=== PATIENT | female | born 1955 | race Caucasian/White ===

== ENCOUNTER → 2016-10-08 | Outpatient (CLI) | payer BC ==
[~2016-10-08] MED LIST: NO HOME MEDICATIONS; PERCOCET 325 MG1 TA2 PO
== END ==
LOC: COL.VAS 10:20
DX: M79.89 Other specified soft tissue disorders (principal)

== ENCOUNTER → 2017-05-20 | Outpatient (CLI) | payer BC | LOC: MC.RAD 14:20 | DX: Z12.31 Encounter for screening mammogram for malignant neoplasm of breast (principal); N63.20 Unspecified lump in the left breast, unspecified quadrant ==

== ENCOUNTER → 2017-05-25 | Outpatient (CLI) | payer BC | LOC: MC.RAD 12:59 | DX: N60.02 Solitary cyst of left breast (principal); N63.20 Unspecified lump in the left breast, unspecified quadrant ==

== ENCOUNTER → 2018-09-04 | Outpatient (CLI) | payer BC | LOC: MC.RAD 09:40 | DX: Z12.31 Encounter for screening mammogram for malignant neoplasm of breast (principal); N63.11 Unspecified lump in the right breast, upper outer quadrant; G35 Multiple sclerosis ==

== ENCOUNTER → 2018-09-08 | Outpatient (CLI) | payer BC | LOC: MC.RAD 09:59 | DX: N60.01 Solitary cyst of right breast (principal) ==

== ENCOUNTER 2018-11-13 13:30 | Outpatient (RCR) | payer BC | END 2018-12-12 | disposition home or self-care (01) | LOC: MKS.ESL.PT | DX: G35 Multiple sclerosis (principal); R26.2 Difficulty in walking, not elsewhere classified ==

== ENCOUNTER 2019-02-05 11:00 | Outpatient (RCR) | payer MEDICARE, OTHER ==
[2019-01-17 10:37] VITALS: BP 142/71; PULSE 73; TEMP 98.5
--- NOTE | 2019-01-17 11:00 | NUR ---
Lizy not here per pharmacy. Pt rescheduled for Tuesday.
--- NOTE | 2019-01-17 11:08 | NUR ---
Pt discharged per w/c with .
[2019-01-19] VITALS (10 sets, daily range): BP systolic 108–132; BP diastolic 49–86; PULSE 78–93; TEMP 98–98.3
[~2019-02-05] VITALS: Ht 167.6 cm; Wt 95.0 kg
[2019-02-05] VITALS (10 sets, daily range): BP systolic 108–136; BP diastolic 56–92; PULSE 68–93; TEMP 71–98
[2019-02-05] MEDS ORDERED: BENADRYL25 M2 PO ×2 (11:37→11:38)
== END 2019-02-05 17:29 | disposition home or self-care (01) ==
LOC: EUO 11:00
DX: G35 Multiple sclerosis (principal); Z79.899 Other long term (current) drug therapy
CPT/HCPCS: J2350; J2930; J7050

== ENCOUNTER 2019-08-03 09:56 | Outpatient (CLI) | payer MEDICARE, OTHER ==
[2019-08-03] VITALS (8 sets, daily range): BP systolic 120–146; BP diastolic 33–81; PULSE 60–79; TEMP 97–98
[~2019-08-03] VITALS: Ht 167.6 cm; Wt 100.7 kg
[~2019-08-03 09:56] MED LIST changes: +BENADRYL25 M2 PO
[2019-08-03] MEDS ORDERED: HYZAAR 50-12.1 UDTAB (11:12)
[2019-08-03] MEDS ORDERED: ALAVERT10 M1 PO (11:13)
[2019-08-03] MEDS ORDERED: ADVIL200 MG PO (11:14)
[2019-08-03] MEDS ORDERED: DITROPAN 5MG TAB5 MG PO (11:14)
== END 2019-08-03 16:00 | disposition home or self-care (01) ==
LOC: EUO 09:56
DX: G35 Multiple sclerosis (principal); Z79.899 Other long term (current) drug therapy
CPT/HCPCS: J2350; J2930; J7040

== ENCOUNTER → 2019-10-10 | Outpatient (CLI) | payer MEDICARE, OTHER ==
[~2019-10-10] MED LIST changes: +ADVIL200 MG PO; +ALAVERT10 M1 PO; +DITROPAN 5MG TAB5 MG PO; +HYZAAR 50-12.1 UDTAB
== END ==
LOC: MC.RAD 16:45
DX: Z12.31 Encounter for screening mammogram for malignant neoplasm of breast (principal)

== ENCOUNTER 2020-05-26 09:53 | Outpatient (CLI) | payer MEDICARE, OTHER ==
[2020-05-26] VITALS (11 sets, daily range): BP systolic 122–152; BP diastolic 66–77; PULSE 50–85; TEMP 97.7–98.2
--- NOTE | 2020-05-26 13:10 | NUR ---
PT ACCIDENTALLY PULLED OUT HER IV TO LAC. CATH IS INTACT. A SECOND IV SITE WAS ESTABLISHED TO RAC, INFUSION RESTARTED.
== END 2020-05-26 16:59 | disposition home or self-care (01) ==
LOC: EUO 09:53
DX: G35 Multiple sclerosis (principal); Z79.899 Other long term (current) drug therapy
CPT/HCPCS: J2350; J2930; J7040

== ENCOUNTER → 2020-10-31 | Outpatient (CLI) | payer MEDICARE | LOC: MC.RAD 13:58 | DX: Z12.31 Encounter for screening mammogram for malignant neoplasm of breast (principal); N63.20 Unspecified lump in the left breast, unspecified quadrant ==

== ENCOUNTER → 2020-11-13 | Outpatient (CLI) | payer MEDICARE | LOC: MC.RAD 09:14 | DX: R59.0 Localized enlarged lymph nodes (principal); N63.20 Unspecified lump in the left breast, unspecified quadrant ==

== ENCOUNTER 2022-01-31 21:25 | Inpatient (IN) | payer MEDICARE ==
[~2022-01-31] VITALS: Ht 167.6 cm; Wt 72.3 kg
[2022-01-31 22:09] LABS: BASO % 0.4 % (0.0-2.0); EOS % 0.4 % (0.0-4.0); GRAN # 7.8 K/mm3 (1.4-6.5); GRAN % 72.6 % (42.2-75.2); HEMATOCRIT 40.6 % (37.0-47.0); HEMOGLOBIN 13.8 g/dl (12.5-16.0); LYMPH # 1.7 K/mm3 (1.2-3.4); LYMPH % 15.4 % (20.0-51.0); MEAN CELL VOLUME 83 fl (80.0-100.0); MEAN CORPUSCULAR HEMOGLOBIN 28 pg (27-31); MEAN CORPUSCULAR HGB CONC 34 g/dl (33.0-37.0); MEAN PLATELET VOLUME 10.5 fl (7.4-10.4); MONO # 1.2 K/mm3 (0.1-0.6); MONO % 10.8 % (1.7-9.3); PLATELET COUNT 372 K/mm3 (130-400); RED BLOOD COUNT 4.87 M/mm3 (4.10-5.30); REDCELL DISTRIBUTION WIDTH-CV 14.2 % (11.5-14.5)
[2022-01-31 22:17] LABS: INR 1.1 (0.8-3.0); PROTHROMBIN TIME 13.1 SECONDS (9.7-12.8)
[2022-01-31 22:20] LABS: PARTIAL THROMBOPLASTIN TIME 33.2 SECONDS (26.0-37.0)
[2022-01-31 22:28] LABS: ALANINE AMINOTRANSFERASE 25 U/L (0-55); ALBUMIN 3.3 gm/dL (3.4-4.8); ALKALINE PHOSPHATASE 75 U/L (40-150); ANION GAP 15 mmol/L (7-16); AST,SGOT 17 U/L (5-34); BILIRUBIN,TOTAL 0.7 mg/dL (0.2-1.2); BLOOD UREA NITROGEN 12 mg/dL (10-20); CALCIUM 9.8 mg/dL (8.4-10.2); CARBON DIOXIDE 27 mmol/L (23-31); CHLORIDE 104 mmol/L (98-107); CREATININE, serum 0.67 mg/dL (0.57-1.11); GLUCOSE 95 mg/dL (70-99); SODIUM 146 mmol/L (136-145); TOTAL PROTEIN 7.1 gm/dL (6.2-8.1)
[2022-01-31 22:33] LABS: POTASSIUM 2.8 mmol/L (3.5-4.5)
[2022-01-31 22:34] LABS: TROPONIN-I < 0.010 ng/mL (0.00-0.033)
[2022-01-31 23:05] LABS: MUCOUS Present (NOT PRESENT); PH 5 (5-8); URINE APPEARANCE Cloudy (CLEAR/HAZY); URINE BACTERIA Many /hpf (NONE SEEN); URINE BILIRUBIN Negative (NEGATIVE); URINE BLOOD Negative (NEGATIVE); URINE COLOR Amber (YELLOW); URINE GLUCOSE Negative (NEGATIVE); URINE KETONE Trace (NEGATIVE); URINE LEUKOCYTE ESTERASE 3+ (NEGATIVE); URINE NITRATE Negative (NEGATIVE); URINE PROTEIN(semi-quant) 1+ (NEGATIVE); URINE UROBILINOGEN Negative (NEGATIVE)
[2022-01-31] MEDS ORDERED: LASIX 20MG TABL20 MG PO (23:24)
[2022-01-31] MEDS ORDERED: DITROPAN 5MG TAB5 MG PO (23:24)
[2022-01-31] MEDS ORDERED: COZAAR 25MG25 MG/TAB PO (23:25)
[2022-01-31] MEDS ORDERED: MASON NATURAL2000 IU PO (23:25)
[2022-01-31] MEDS ORDERED: ARICEPT 5MG PO (23:25)
[2022-02-01 00:50] VITALS: BP 135/57; PULSE 87; TEMP 98.6
[2022-02-01 04:19] VITALS: BP 119/55; PULSE 78; TEMP 98.6
[2022-02-01 05:31] LABS: BASO % 0.3 % (0.0-2.0); EOS % 0.2 % (0.0-4.0); GRAN # 8.7 K/mm3 (1.4-6.5); LYMPH # 1.5 K/mm3 (1.2-3.4); LYMPH % 12.7 % (20.0-51.0); MEAN CELL VOLUME 84 fl (80.0-100.0); MEAN CORPUSCULAR HGB CONC 34 g/dl (33.0-37.0); MEAN PLATELET VOLUME 10.6 fl (7.4-10.4); MONO # 1.2 K/mm3 (0.1-0.6); MONO % 10.5 % (1.7-9.3); PLATELET COUNT 345 K/mm3 (130-400); RED BLOOD COUNT 4.06 M/mm3 (4.10-5.30); REDCELL DISTRIBUTION WIDTH-CV 14.2 % (11.5-14.5)
[2022-02-01 05:37] LABS: HEMATOCRIT 34.1 % (37.0-47.0); HEMOGLOBIN 11.6 g/dl (12.5-16.0); MEAN CORPUSCULAR HEMOGLOBIN 29 pg (27-31)
--- NOTE | 2022-02-01 05:47 | NUR ---
66 yo female admitted for further care and management of sepsis likely secondary to skin/soft tissue source (R LE cellulitis). ht 167.6 cm wt 68.7 kg SCr 0.67 with estimated CrCl >60 ml/min half life 11 hours Plan: Patient received an initial loading dose of vancomycin 1500 mg x1 in the ED (21.8 mg/kg); will follow with a maintenance regimen of vancomycin 1000 mg q12h to target a goal trough of 10-15 mcg/ml. Will follow patient's renal function, micro data, and vancomycin levels as indicated to assess for any necessary changes to regimen. Thank you for this dosing consult.
[2022-02-01 05:49] LABS: CALCIUM 8.8 mg/dL (8.4-10.2); CREATININE, serum 0.64 mg/dL (0.57-1.11); POTASSIUM 3.4 mmol/L (3.5-4.5)
--- NOTE | 2022-02-01 06:00 | NUR ---
PT ARRIVED TO THE MEDICAL FLOOR AT 0040HRS TO ROOM 312. PT A&O TO SELF BUT DOES HAVE SOME LUCID PERIODS; VSS; O2 RA. PT DENIES AND DOES NOT APPEAR TO HAVE ANY DISCOMFORT, N,V,D, SOB OR DIZZINESS. ADMISSIONS ASSESSMENT AND MED REC COMPLETE. PT ORIENTED TO ROOM AND HOSPITAL POLICY, BUT WILL NEED REINFORCEMENT. WILL CLOSELY MONITOR PT TO ENSURE HER NEEDS ARE MET. CALL LIGHT WITHIN REACH.
[2022-02-01 07:08] VITALS: BP 131/64; PULSE 86; TEMP 98
--- NOTE | 2022-02-01 10:48 | NUR ---
PT RESTING IN BED, BROTHER/DPOA AT BEDSIDE. MORNING MEDICATIONS GIVEN. SHIFT ASSESSMENT COMPLETED. PT ALERT AND ORIENTED TO SELF, DEMENTED. DENIES ANY PAIN OR NEEDS AT THIS TIME. BLE EDEMA NOTED, R LEG MORE EDEMATOUS THAN L. ULCER NOTED TO RLE, OPEN TO AIR AT THIS TIME, WILL PLACE A DRESSING LATER TODAY. CONTINUING TO MONITOR.
[2022-02-01 11:20] VITALS: BP 107/47; PULSE 73; TEMP 98.7
[2022-02-01 11:43] LABS: COLLECTION METHOD CATHETER
--- NOTE | 2022-02-01 13:41 | NUR ---
Diana: [facility] Situation: Fitter / Welder went by room on rounds Background: PT was resting with family around Assessment: PT asked for prayer, planning management it specialist prayed with PT and she appreciated the time Recommendation: Fitter / Welder will follow up as needed
--- NOTE | 2022-02-01 14:34 | NUR ---
PT LEEANNA ASTUDILLO CAN BE REACHED AT [phone].
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
[2022-02-01 15:40] VITALS: BP 112/51; PULSE 85; TEMP 98.4
--- NOTE | 2022-02-01 19:45 | NUR ---
DRESSING PLACED TO PT RLE. PURULENT DRAINAGE NOTED. WOUND WAS DEBRIDED, LARGE AMOUNT OF HAIR WAS REMOVED FROM THE WOUND TISSUE. CLEANING COMPLETED IN AND AROUND THE WOUND WITH STERILE WATER. OIL BASED GUAZE PLACED ON OPEN AREAS. NON ADHERENT PADS WITH FLUFF GUAZE USED TO HOLD DRESSING IN PLACE. PASSED ALONG REPORT TO ONCOMING RNRACHELLE.
[2022-02-01 19:48] VITALS: BP 107/80; PULSE 82; TEMP 98.5
[2022-02-02 00:12] VITALS: BP 103/52; PULSE 84; TEMP 98.4
[2022-02-02 04:48] VITALS: BP 113/55; PULSE 90; TEMP 98.9
--- NOTE | 2022-02-02 05:07 | NUR ---
RESTED THROUGH THE NIGHT WITHOUT INCIDENT. BED ALARM ON. DSG TO RT LEG INTACT. PT REPOSTIONED. KEE TO DD W CLEAR YELLOW URINE. HAD BM LAST NIGHT. NEEDS MET.
[2022-02-02 07:46] VITALS: BP 122/50; PULSE 80; TEMP 98.6
--- NOTE | 2022-02-02 08:59 | NUR ---
Scheduled medications given. Shift assessment preformed. Patient Alert but confused. VSS. Flanagan catheter in place, securment device in use, no kinks in tubing. Output is yellow and clear. Patient has wound to right calf. Wound dressing is CDI. Fluids running as ordered. Patient denies any pain, discomfort, SOA, or further needs at this time. Call light in reach. Fall precautions in place.
--- NOTE | 2022-02-02 09:44 | NUR ---
Cyndi, at [facility], reports that they need to know the patient's COVID vaccine status and if applied for Medicaid. NURIS contacted the patient's brother, Gerard, to follow up on this. Gerard reports that the patient has had her first two doses of the Pfizer vaccine and he has the vaccine card. He confirms that the patient has not applied for Medicaid yet and that the patient has enough money to private pay. NURIS updated the Cyndi at [facility]. Cyndi plans to take this information back to her clinical team. They are looking at accepting, but would like to talk to Gerard first about private paying after SNF. NURIS to fax updates to [facility] and [facility].
[2022-02-02 12:27] VITALS: BP 101/60; PULSE 84; TEMP 99
--- NOTE | 2022-02-02 13:27 | NUR ---
Renetta, at [facility], reports that they are able to accept the patient. She states that they would just need a copy of the patient's DPOA-HC, vaccine card, and insurance card. She also wants to make sure the patient's brother realizes that it will be private pay after her SNF stay. NURIS contacted the patient's brother, Gerard, and reviewed the above. Gerard verbalized understanding that they will have to private pay after SNF or LTC and he is okay with his. NURIS obtained a copy of the patient's vaccine card from Gerard. NURIS faxed the vaccine card, insurance card, and DPOA-HC, along with updates to [facility]. *Discharge plan: [facility] SNF*
[2022-02-02 16:24] VITALS: BP 129/57; PULSE 74; TEMP 99
--- NOTE | 2022-02-02 16:39 | NUR ---
The patient may be able to discharge tomorrow. Cyndi, at [facility], reports that they can picker tender the patient tomorrow at 1100. NURIS updated the patient's brother, Gerard. Gerard is in agreement to the plan.
--- NOTE | 2022-02-02 18:00 | NUR ---
Patient has had an ok day. Has had periods of agitation and confusion and pulled IV out. Patient reorientated to situation. New IV started in Left AC. Dressing on RLE redressed using oil emursion dressing, abd, and kerlex. Patient currently denies any pain, discomfort, SOA, or further needs at this time. Call light in reach. Fall precautions in place.
[2022-02-02 20:35] VITALS: BP 121/47; PULSE 93; TEMP 98.5
--- NOTE | 2022-02-02 23:16 | NUR ---
PT PULLED OUT LT AC IV, TOOK OFF TELE LEADS AND PATCHES AND HAD STARTED TO WORK ON KEE CATH. JAME NOTIFED. MITS PUT ON AND ALL REPLACE. PT SOMEHOW GOT MITS OFF. MONITORING, SLEEPING NOW AND NOT PULLING AT LINES.
[2022-02-03 00:38] VITALS: BP 118/56; PULSE 85; TEMP 99.8
[2022-02-03 04:21] VITALS: BP 127/58; PULSE 83; TEMP 98.8
[2022-02-03 07:45] VITALS: BP 123/55; PULSE 81; TEMP 98.6
--- NOTE | 2022-02-03 09:25 | NUR ---
PT LAYING SUPINE IN BED ON ROOM AIR. PT IS A&O TO SELF ONLY. DR AT BEDSIDE AND TOOK RIGHT LEG DRESSING OFF. STATES THAT SHE WANTS A MEPILEX PUT BACK ON IT SO IT DOESNT STICK TO THE WOUND. MEPILEX WAS PUT ON. PT STATES THAT SHE DOES NOT WANT TO EAT ANY BREAKFAST SO TRAY WAS REMOVED. PT STATES NO OTHER NEEDS/CONCERNS AT THIS TIME. CALL LIGHT IS WITHIN REACH.
[2022-02-03 10:49] LABS: BASO % 0.2 % (0.0-2.0); GRAN # 11.2 K/mm3 (1.4-6.5); GRAN % 84.8 % (42.2-75.2); LYMPH # 0.7 K/mm3 (1.2-3.4); LYMPH % 5.2 % (20.0-51.0); MEAN CELL VOLUME 85 fl (80.0-100.0); MEAN CORPUSCULAR HEMOGLOBIN 29 pg (27-31); MEAN CORPUSCULAR HGB CONC 34 g/dl (33.0-37.0); MEAN PLATELET VOLUME 10.6 fl (7.4-10.4); MONO # 1.2 K/mm3 (0.1-0.6); MONO % 9.1 % (1.7-9.3); PLATELET COUNT 355 K/mm3 (130-400); RED BLOOD COUNT 4.19 M/mm3 (4.10-5.30); REDCELL DISTRIBUTION WIDTH-CV 14.4 % (11.5-14.5)
[2022-02-03 10:53] LABS: HEMATOCRIT 35.5 % (37.0-47.0)
[2022-02-03 11:05] LABS: CALCIUM 8.6 mg/dL (8.4-10.2); CREATININE, serum 0.63 mg/dL (0.57-1.11); POTASSIUM 3.9 mmol/L (3.5-4.5)
--- NOTE | 2022-02-03 11:09 | NUR ---
The hospitalist notified NURIS that the patient's wound cultures are still pending, so the team is not ready to discharge the patient today. NURIS notified and faxed updates to Cyndi at [facility]. NURIS contacted and updated the patient's brother, Gerard.
[2022-02-03 11:11] VITALS: BP 118/53; PULSE 80; TEMP 99.1
[2022-02-03 15:17] VITALS: BP 124/54; PULSE 88; TEMP 100.2
--- NOTE | 2022-02-03 18:57 | NUR ---
PT LAYING SUPINE IN BED. PT IS ALERT AND CONFUSED. MEPILEX ON RIGHT LEG IS DRY AND INTACT. EKE IS OUT PER MD ORDER. PT DID HAVE A TEMP OF 100.2 AND TYLENOL WAS GIVEN. PT STATES NO NEEDS OR PAIN AT THIS TIME. CALL LIGHT IS WITHIN REACH.
[2022-02-03 20:02] VITALS: BP 117/53; PULSE 81; TEMP 98.3
[2022-02-04 00:16] VITALS: BP 106/48; PULSE 79; TEMP 99.5
--- NOTE | 2022-02-04 02:02 | NUR ---
REPORT FROM RACHELLE AVILA. PATIENT IN BED ON ROOM ENTRY. AWAKE AND STATES SHE FEELS LIKE SHE COULD PEE, PATIENT CURRENTLY SITTING ON BEDPAN. BLADDER SCAN REPORTED BY CARDIOLOGY SPECIALIST: 452 ML IN BLADDER. X2 ASSIST TO COMMODE AND VOIDED 440. DENIES ADDITIONAL NEEDS.
[2022-02-04 04:15] VITALS: BP 117/61; PULSE 78; TEMP 98.2
[2022-02-04 06:41] LABS: BASO % 0.3 % (0.0-2.0); EOS # 0.1 K/mm3 (0.0-0.7); EOS % 0.7 % (0.0-4.0); GRAN # 10.1 K/mm3 (1.4-6.5); GRAN % 79.4 % (42.2-75.2); HEMOGLOBIN 10.4 g/dl (12.5-16.0); MEAN CELL VOLUME 87 fl (80.0-100.0); MEAN CORPUSCULAR HEMOGLOBIN 29 pg (27-31); MEAN CORPUSCULAR HGB CONC 33 g/dl (33.0-37.0); MEAN PLATELET VOLUME 10.7 fl (7.4-10.4); MONO # 1.4 K/mm3 (0.1-0.6); MONO % 11.1 % (1.7-9.3); PLATELET COUNT 328 K/mm3 (130-400); RED BLOOD COUNT 3.64 M/mm3 (4.10-5.30); REDCELL DISTRIBUTION WIDTH-CV 14.7 % (11.5-14.5)
[2022-02-04 06:44] LABS: HEMATOCRIT 31.7 % (37.0-47.0)
[2022-02-04 07:00] LABS: CALCIUM 8.2 mg/dL (8.4-10.2); CREATININE, serum 0.78 mg/dL (0.57-1.11); MAGNESIUM 1.7 mg/dL (1.6-2.6); POTASSIUM 3.3 mmol/L (3.5-4.5)
[2022-02-04 07:53] VITALS: BP 125/64; PULSE 80; TEMP 98.2
--- NOTE | 2022-02-04 08:15 | NUR ---
MEPILEX ON RIGHT LEG IS DRY AND INTACT. LEG IS ELEVATED ON PILLOW.
--- NOTE | 2022-02-04 08:15 | NUR ---
PT SITTING UP IN BED AND EATING BREAKFAST ON ROOM AIR. PT IS PLEASANT THIS AM AND ALERT TO SELF ONLY. PT STATES NO PAIN OR CONCERNS AT THIS TIME. "I AM JUST EATING MY BREAKFAST, I WOULD LIKE TO GO HOME." EXPLAINED TO PT THAT WE ARE WAITING FOR LAB RESULTS TO RETURN BEFORE SHE CAN BE DISCHARGED. PT VOICES UNDERSTANDING. CALL LIGHT IS WITHIN REACH.
[2022-02-04 11:12] VITALS: BP 121/54; PULSE 75; TEMP 98.2
--- NOTE | 2022-02-04 13:52 | NUR ---
The patient's wound cultures are still pending. NURIS notified and faxed updates to Cyndi at [facility]. *Discharge plan: [facility]*
[2022-02-04 16:00] VITALS: BP 126/63; PULSE 85; TEMP 99.1
--- NOTE | 2022-02-04 18:49 | NUR ---
PT SITTING UP IN CHAIR ON ROOM AIR. PT PLEASANTLY CONFUSED. STATES THAT SHE IS DONE WITH HER DINNER, TRAY WAS REMOVED. MEPILEX WAS REPLACED ON RIGHT CALF. SURG CONSULT WAS CALLED AND STATES THAT THEY WILL BE IN THE AM TO SEE HER. CULTURE IS STILL PENDING. CALL LIGHT IS WITHIN REACH.
[2022-02-04 20:12] VITALS: BP 123/58; PULSE 86; TEMP 99.2
--- NOTE | 2022-02-04 23:28 | NUR ---
Patient assessed around 194. Alert and oriented to self. Disoriented to time, place, and situation. High fall risk precautions in place. Reported level 5 pain to right calf with movement, and also had right hip pain. Given PRN Acetaminophen. Peripheral IV to left forearm with IV fluids and ABX running per orders. Denies SOB and dyspnea. LS CTA. HRR. Telemetry in place. BSAx4. Abdomen soft and non-tender. 2+ edema BLE. Redness to bottom. Mepilex to right calf CDI. Repositioned in bed, heels floating. In bed with call light within reach. Bed alarm on.
[2022-02-05] VITALS (7 sets, daily range): BP systolic 109–134; BP diastolic 51–67; PULSE 58–82; TEMP 97.9–98.8
--- NOTE | 2022-02-05 06:11 | NUR ---
Patient has been confused but pleasant this shift. Did use bedside commode with two assist. Continues on IV fluids and ABX per orders. In bed with call light within reach. Bed alarm on.
[2022-02-05 06:19] LABS: BASO % 0.3 % (0.0-2.0); EOS # 0.2 K/mm3 (0.0-0.7); EOS % 1.3 % (0.0-4.0); GRAN # 9.4 K/mm3 (1.4-6.5); GRAN % 80.6 % (42.2-75.2); HEMOGLOBIN 10.6 g/dl (12.5-16.0); LYMPH # 0.9 K/mm3 (1.2-3.4); LYMPH % 7.7 % (20.0-51.0); MEAN CELL VOLUME 86 fl (80.0-100.0); MEAN CORPUSCULAR HEMOGLOBIN 29 pg (27-31); MEAN CORPUSCULAR HGB CONC 33 g/dl (33.0-37.0); MEAN PLATELET VOLUME 10.9 fl (7.4-10.4); MONO # 1.1 K/mm3 (0.1-0.6); MONO % 9.6 % (1.7-9.3); PLATELET COUNT 358 K/mm3 (130-400); RED BLOOD COUNT 3.72 M/mm3 (4.10-5.30)
[2022-02-05 06:27] LABS: HEMATOCRIT 32.1 % (37.0-47.0)
[2022-02-05 06:36] LABS: CALCIUM 8.4 mg/dL (8.4-10.2); CREATININE, serum 0.94 mg/dL (0.57-1.11); MAGNESIUM 2.2 mg/dL (1.6-2.6); POTASSIUM 3.8 mmol/L (3.5-4.5)
--- NOTE | 2022-02-05 12:37 | NUR ---
PATIENT RIGHT LEG WOUND DRESSING CHANGED AND REDRESSED. WOUND CULTURE RESULTS COMMUNICATED TO PROVIDER AND ORDERS RECIEVED. PATIENT DOING WELL THIS SHIFT. PLEASANTLY CONFUSED AT TIMES. APPETITE IS GOOD. FLUIDS ENCOURAGED. DOES NOT APPEAR TO BE CONTINENT OF BOWEL OR BLADDER, CARE PROVIDED. IS ABLE TO BEAR WEIGHT AND AMBULATE SHORT DISTANCES. SPEECH CLEAR. TAKES MEDICATIONS WHOLE WITH NO PROBLEM. TOLERATING IV ANTIBIOTICS WELL. AWAITING SNF PLACEMENT.
--- NOTE | 2022-02-05 13:35 | NUR ---
NURSI staffed with the PA. The patient's final wound cultures are not in yet, so the clinical team is not ready to discharge the patient. [facility] NURIS contacted the patient's brother, Gerard, to update. Gerard states that he is at [facility] now and he asked staff it they take over the weekend. The staff member said no and they would look at a Tuesday admission. NURIS attempted to contact Renetta at [facility] to confirm this. NURIS left her a voicemail and faxed over updates. *Discharge plan: [facility] Tuesday*
--- NOTE | 2022-02-06 00:49 | NUR ---
Patient assessed around 1919. At that time, patient agitated. Was sitting in recliner, had pulled off telemetry, pulled out IV, and had been incontint. Assisted patient to bedside commode, changed, and replaced telemetry. Unable to get IV access. Car Rental Agent able to start IV to left forearm. Did complain of pain to right hip. Given PRN APAP. In bed with call light within reach. Bed alarm on.
[2022-02-06 05:56] VITALS: BP 129/69; PULSE 64; TEMP 98
--- NOTE | 2022-02-06 06:41 | NUR ---
Patient took IV out to left forearm. Boat Finisher able to start new IV to right forearm. Continues on IV fluids and ABX per orders. High fall risk precautions remain in place.
[2022-02-06 07:01] LABS: BASO # 0.1 K/mm3 (0.0-0.2); BASO % 0.6 % (0.0-2.0); EOS # 0.2 K/mm3 (0.0-0.7); EOS % 1.4 % (0.0-4.0); GRAN % 80.3 % (42.2-75.2); HEMOGLOBIN 10.4 g/dl (12.5-16.0); LYMPH # 0.9 K/mm3 (1.2-3.4); LYMPH % 7.9 % (20.0-51.0); MEAN CELL VOLUME 86 fl (80.0-100.0); MEAN CORPUSCULAR HEMOGLOBIN 28 pg (27-31); MEAN CORPUSCULAR HGB CONC 33 g/dl (33.0-37.0); MEAN PLATELET VOLUME 10.9 fl (7.4-10.4); MONO # 1.1 K/mm3 (0.1-0.6); MONO % 9.4 % (1.7-9.3); PLATELET COUNT 390 K/mm3 (130-400); RED BLOOD COUNT 3.66 M/mm3 (4.10-5.30); REDCELL DISTRIBUTION WIDTH-CV 14.9 % (11.5-14.5)
[2022-02-06 07:15] LABS: HEMATOCRIT 31.6 % (37.0-47.0)
[2022-02-06 07:35] LABS: CALCIUM 8.5 mg/dL (8.4-10.2); CREATININE, serum 0.93 mg/dL (0.57-1.11); MAGNESIUM 2.1 mg/dL (1.6-2.6); POTASSIUM 3.6 mmol/L (3.5-4.5)
[2022-02-06 07:59] VITALS: BP 130/54; PULSE 75
--- NOTE | 2022-02-06 11:05 | NUR ---
Initial visit; Patient is very confused but did thank Personal Coach for looking in on her. Personal Coach listened until it was clear Dorita was not able to stay with any subject, therefore Personal Coach wished her well and offered God's blessings.
[2022-02-06 11:59] VITALS: BP 118/91; PULSE 73; TEMP 98.5
[2022-02-06 16:12] VITALS: BP 133/62; PULSE 81; TEMP 98.5
[2022-02-06 21:23] VITALS: BP 126/82; PULSE 80; TEMP 98.2
[2022-02-06 23:34] VITALS: BP 124/58; PULSE 76; TEMP 98.5
--- NOTE | 2022-02-07 00:37 | NUR ---
Patient assessed around 1954. At shift change, patient had pulled out IV to right forearm. New one started to left AC by day shift nurse. Wrapped with coban. Continues on IV fluids and ABX per orders. Has been incontinent this shift. Incontinent cares provided. Repositionedin bed. Redness to bottom. Scab to left heel, heels floating on pillows. In bed with call light within reach. Bed alarm on.
[2022-02-07 03:51] VITALS: BP 125/79; PULSE 74; TEMP 98.6
--- NOTE | 2022-02-07 06:32 | NUR ---
Patient has been incontinent this shift. Has been talking/yelling out, but incontinent when checked on. Continues on IV fluids and ABX per orders. In bed with call light within reach. High fall risk precautions in place.
[2022-02-07 07:31] VITALS: BP 138/63; PULSE 70; TEMP 98.3
--- NOTE | 2022-02-07 08:00 | NUR ---
Assisted pt to the restroom. She needed a lot of direction to get in to the bathroom and had to be reminded to keep hold of the walker. Pt did void without difficulty. Assisted pt to the chair. She did have breakfast in front of her, but refused to eat and stated that she was not hungry. Pt denied having any pain. Drsg to calf is CDI. Lower extremities are edematus, right is larger than the left. Chair alarm on, door left open
[2022-02-07 08:02] LABS: BASO # 0.1 K/mm3 (0.0-0.2); BASO % 0.5 % (0.0-2.0); EOS # 0.1 K/mm3 (0.0-0.7); GRAN % 82.8 % (42.2-75.2); HEMOGLOBIN 10.7 g/dl (12.5-16.0); LYMPH # 0.8 K/mm3 (1.2-3.4); LYMPH % 6.4 % (20.0-51.0); MEAN CELL VOLUME 85 fl (80.0-100.0); MEAN CORPUSCULAR HEMOGLOBIN 29 pg (27-31); MEAN CORPUSCULAR HGB CONC 33 g/dl (33.0-37.0); MEAN PLATELET VOLUME 10.5 fl (7.4-10.4); MONO # 1.1 K/mm3 (0.1-0.6); MONO % 9.1 % (1.7-9.3); PLATELET COUNT 445 K/mm3 (130-400); RED BLOOD COUNT 3.75 M/mm3 (4.10-5.30); REDCELL DISTRIBUTION WIDTH-CV 14.8 % (11.5-14.5)
[2022-02-07 08:21] LABS: CALCIUM 8.5 mg/dL (8.4-10.2); CREATININE, serum 1.12 mg/dL (0.57-1.11); POTASSIUM 3.2 mmol/L (3.5-4.5)
--- NOTE | 2022-02-07 10:14 | NUR ---
Noticed pt was eating cookie earlier and is not eating curtis candies. Moved those away so that pt would try and eat some nutritious. Gave her vanilla ensure and placed banana in front of her. Pt is alert to self, knows she is in the hospital in [place], but convsersation is not clear. Pt intially refused to take her medications but then stated she would only take one, in the end, she did end up taking all of her medications. Talked with her friend on the phone who is on [email or web address] paperwork. She stated that Dorita has not had actual meals in over a year. She said that she would occasionally get a meal when her or the pts brother would bring some to her. Pt remains in the chair, chair alarm on
[2022-02-07 11:38] VITALS: BP 115/55; PULSE 77; TEMP 98.6
--- NOTE | 2022-02-07 15:01 | NUR ---
Dressing changed to right calf. Large area open and raw. Gauze that was on wound did require moistening to loosen it enough to get dressing off. removed old dressing earlier in shift for Dr Napier to see. Received order for ointment. Just applied new dressing. Ointment applied, followed by vaseline gauze and kerlix wrap. Pt then assisted up to the chair as she is incontinent of urine. Bed linens removed. Chair alarm on
[2022-02-07 16:00] VITALS: BP 128/64; PULSE 79; TEMP 99.2
--- NOTE | 2022-02-07 18:38 | NUR ---
Pt has been sleepy, but does wake when spoken to. Conversation continues to be confused. DRSG to calf remains CDI, bed alarm on
[2022-02-07 20:41] VITALS: BP 134/67; PULSE 77; TEMP 99
[2022-02-08 00:10] VITALS: BP 106/59; PULSE 80; TEMP 98.6
[2022-02-08 04:30] VITALS: BP 123/60; PULSE 68; TEMP 99
--- NOTE | 2022-02-08 05:53 | NUR ---
PT RESTED THROUGH THE NIGHT WITHOUT INCIDENT. DC TODAY TO [facility] AT 1430.
[2022-02-08 06:43] LABS: BASO % 0.2 % (0.0-2.0); EOS # 0.1 K/mm3 (0.0-0.7); EOS % 1.1 % (0.0-4.0); GRAN # 10.6 K/mm3 (1.4-6.5); GRAN % 80.7 % (42.2-75.2); LYMPH # 0.8 K/mm3 (1.2-3.4); LYMPH % 6.4 % (20.0-51.0); MEAN CELL VOLUME 88 fl (80.0-100.0); MEAN CORPUSCULAR HGB CONC 32 g/dl (33.0-37.0); MEAN PLATELET VOLUME 10.4 fl (7.4-10.4); MONO # 1.5 K/mm3 (0.1-0.6); MONO % 11.2 % (1.7-9.3); PLATELET COUNT 425 K/mm3 (130-400); REDCELL DISTRIBUTION WIDTH-CV 14.9 % (11.5-14.5)
[2022-02-08 06:44] LABS: HEMATOCRIT 30.7 % (37.0-47.0); HEMOGLOBIN 9.8 g/dl (12.5-16.0); MEAN CORPUSCULAR HEMOGLOBIN 28 pg (27-31)
[2022-02-08 07:14] LABS: CALCIUM 8.5 mg/dL (8.4-10.2); CREATININE, serum 1.16 mg/dL (0.57-1.11)
[2022-02-08 07:25] VITALS: BP 126/56; PULSE 70; TEMP 98.7
[2022-02-08] MEDS ORDERED: GOOD SENSE TRIP1 OI1 TP (07:30)
[2022-02-08 07:53] LABS: POTASSIUM 3.5 mmol/L (3.5-4.5)
--- NOTE | 2022-02-08 09:05 | NUR ---
PT SITTING UP IN BED EATING BREAKFAST. PT A&O TO SELF ONLY. RIGHT LEG WOUND DRESSING IS SOILDED AND WAS CHANGED WITH MEPILEX. PLAN IS FOR PT TO LEAVE TODAY TO [facility]. PT STATE NO NEEDS/CONCERNS AT THIS TIME. CALL LIGHT IS WITHIN REACH.
[2022-02-08] MEDS ORDERED: CEFTIN500 MG PO (09:55)
--- NOTE | 2022-02-08 10:42 | NUR ---
The patient is to discharge today, 02/08, to [facility] for a skilled stay. Transportation was scheduled at 1400, via [place]. NURIS informed the patient's RN and her brother, Gerard, of the time. NURIS also presented and read the IM form outloud to [place]. Gerard verbalized understanding and of agreement to discharge today. Gerard signed the form and NURIS provided him with a copy. No additional needs at this time.
[2022-02-08 11:20] VITALS: BP 125/50; PULSE 76; TEMP 98.6
--- NOTE | 2022-02-08 12:55 | NUR ---
CALLED REPORT TO SARA AT [facility]. ALL QUESTIONS ANSWERED. CALL BACK NUMBER LEFT.
== END 2022-02-08 14:45 | DRG 603 ==
LOC: COL.ER 21:25 → MEDICAL 22:40
PROVIDERS: Emergency Medicine; Family Medicine; Internal Medicine; Nurse Practitioner Family; Physician Assistant; Student in an Organized Health Care Education/Training Program; ADMIT Internal Medicine
DX: L03.115 Cellulitis of right lower limb (principal); N39.0 Urinary tract infection, site not specified; E87.0 Hyperosmolality and hypernatremia; F03.90 Unspecified dementia, unspecified severity, without behavioral disturbance, psychotic disturbance, mood disturbance, and anxiety; I10 Essential (primary) hypertension; E87.6 Hypokalemia; G35 Multiple sclerosis; E83.52 Hypercalcemia; M25.551 Pain in right hip; R32 Unspecified urinary incontinence; B96.1 Klebsiella pneumoniae [K. pneumoniae] as the cause of diseases classified elsewhere; E83.42 Hypomagnesemia; B95.8 Unspecified staphylococcus as the cause of diseases classified elsewhere; B95.5 Unspecified streptococcus as the cause of diseases classified elsewhere; Z88.1 Allergy status to other antibiotic agents
CPT/HCPCS: 99223-AI; 99232-AI; 99233-AI; 99239; J1650; J2543; J3370; J3475; J3480; J7030; J7050

== ENCOUNTER 2023-05-25 18:01 | Inpatient (IN) | payer MEDICARE ==
[~2023-05-25] VITALS: Ht 167.6 cm; Wt 88.2 kg
[~2023-05-25 18:01] MED LIST changes: +ARICEPT 5MG PO; +CEFTIN500 MG PO; +COZAAR 25MG25 MG/TAB PO; +GOOD SENSE TRIP1 OI1 TP; +LASIX 20MG TABL20 MG PO; +MASON NATURAL2000 IU PO
[2023-05-25 18:45] LABS: HEMOGLOBIN 13.1 g/dl (12.5-16.0); MEAN CELL VOLUME 87 fl (80.0-100.0); MEAN CORPUSCULAR HEMOGLOBIN 28 pg (27-31); MEAN CORPUSCULAR HGB CONC 33 g/dl (33.0-37.0); MEAN PLATELET VOLUME 10.1 fl (7.4-10.4); PLATELET COUNT 348 K/mm3 (130-400); RED BLOOD COUNT 4.62 M/mm3 (4.10-5.30); REDCELL DISTRIBUTION WIDTH-CV 14.6 % (11.5-14.5)
[2023-05-25 19:04] LABS: ALBUMIN 3.3 gm/dL (3.4-4.8); BILIRUBIN,TOTAL 1.1 mg/dL (0.2-1.2); CREATININE, serum 0.86 mg/dL (0.57-1.11); POTASSIUM 3.3 mmol/L (3.5-4.5); TOTAL PROTEIN 7.4 gm/dL (6.2-8.1)
[2023-05-25 19:10] LABS: BAND 4 % (0-10); HYPOCHROMIA 1+; LYMPHOCYTE 10 % (20.0-51.0); NEUTROPHILS 83 % (42.0-75.2); PLATELET ESTIMATE NORMAL (NORMAL)
[2023-05-25 19:44] LABS: URINE APPEARANCE Cloudy (CLEAR/HAZY); URINE COLOR Yellow (YELLOW)
[2023-05-25 19:45] LABS: PH 5.5 (5.0-8.5); URINE BLOOD TRACE-INTACT (NEGATIVE); URINE GLUCOSE Negative (NEGATIVE); URINE KETONE Negative (NEGATIVE); URINE NITRATE Positive (NEGATIVE); URINE PROTEIN(semi-quant) Negative (NEGATIVE); URINE UROBILINOGEN 0.2 E.U/dL (0.2-1.0)
[2023-05-25 19:46] LABS: SQUAMOUS EPITHELIAL 0-2 /hpf (0-10); URINE BACTERIA Moderate /hpf (NONE SEEN)
[2023-05-26] VITALS (12 sets, daily range): BP systolic 110–136; BP diastolic 42–64; PULSE 72–98; TEMP 97.9–100.3
--- NOTE | 2023-05-26 00:35 | NUR ---
Patient arrived on the floor at this time. Patient transferred to bed using sliding board. Patient only alert to her self and is unable to tell me where she is at or what year it is. Assessment complete. Edema to lower extremities noted, non-pitting. IV in right forearm flushes easily with no complications, dressing clean, dry, and intact.
[2023-05-26] MEDS ORDERED: DITROPAN XL10 MG PO (05:09)
[2023-05-26] MEDS ORDERED: ARICEPT 5MG PO (05:10)
[2023-05-26] MEDS ORDERED: NAMENDA 10MG TA10 MG PO (05:12)
[2023-05-26] MEDS ORDERED: CELEXA10 MG PO (05:12)
[2023-05-26] MEDS ORDERED: RISPERDAL 0.20.25 MG PO (05:13)
[2023-05-26] MEDS ORDERED: LASIX 40MG TABL40 MG PO (05:14)
[2023-05-26] MEDS ORDERED: MOTRIN 400400 MG/TAB PO (05:15)
[2023-05-26] MEDS ORDERED: ULTRAM 50MG TAB50 MG PO (05:16)
[2023-05-26] MEDS ORDERED: TYLENOL 500MG500 MG PO (05:24)
[2023-05-26] MEDS ORDERED: GENTLE LAXATIVE10 MG RC (05:27)
--- NOTE | 2023-05-26 05:30 | NUR ---
Patient resting in bed. Respirations even and unlabored at this time. No signs of pain at this time. Meds given with applesauce and tolerated well. No needs at this time. Call light and personal items in reach. Bed in low position and non-slip footwear in place.
[2023-05-26 05:33] LABS: BASO % 0.3 % (0.0-2.0); EOS % 0.1 % (0.0-4.0); GRAN # 10.7 K/mm3 (1.4-6.5); GRAN % 79.3 % (42.2-75.2); HEMOGLOBIN 11.2 g/dl (12.5-16.0); LYMPH # 1.4 K/mm3 (1.2-3.4); LYMPH % 10.5 % (20.0-51.0); MEAN CELL VOLUME 84 fl (80.0-100.0); MEAN CORPUSCULAR HEMOGLOBIN 29 pg (27-31); MEAN CORPUSCULAR HGB CONC 34 g/dl (33.0-37.0); MEAN PLATELET VOLUME 10.4 fl (7.4-10.4); MONO # 1.3 K/mm3 (0.1-0.6); MONO % 9.4 % (1.7-9.3); PLATELET COUNT 320 K/mm3 (130-400); RED BLOOD COUNT 3.93 M/mm3 (4.10-5.30); REDCELL DISTRIBUTION WIDTH-CV 14.3 % (11.5-14.5)
[2023-05-26 05:36] LABS: HEMATOCRIT 32.9 % (37.0-47.0)
[2023-05-26 05:55] LABS: CALCIUM 9.1 mg/dL (8.4-10.2); CREATININE, serum 0.76 mg/dL (0.57-1.11); POTASSIUM 3.6 mmol/L (3.5-4.5)
[2023-05-26] MEDS ORDERED: VITAMIN D31000 IU PO (07:40)
[2023-05-26] MEDS ORDERED: CLARITIN 1010 MG/TAB PO (07:41)
[2023-05-26] MEDS ORDERED: ROBITUSSIN100 MG/5 M PO (07:46)
[2023-05-26] MEDS ORDERED: GOOD NEIGH1200 MG/15 (07:47)
[2023-05-26] MEDS ORDERED: COMPLETE MULTI1 TAB PO (07:48)
[2023-05-26 09:34] LABS: COLLECTION METHOD CATHETER
--- NOTE | 2023-05-26 11:56 | NUR ---
initial visit: Iuss Analyst stopped by room on rounds. Pt was resting and content. Pt has no needs right now. Iuss Analyst will follow up as needed.
--- NOTE | 2023-05-26 16:26 | NUR ---
housekeeping department worker met with patient to discuss discharge planning. Patient expressed she lives in [place]. housekeeping department worker asked if she lives at the [facility], patient expressed she lives in [place]. housekeeping department worker wrote her number on the board in case she had questions and will reach out to the patient's [facility]- for remaining discharge planning. housekeeping department worker contacted Gerard, [facility], P# [phone]. Gerard confirmed patient currently lives at [facility] but they were looking at possibly moving her to another facility in [place]. Gerard confirmed the plan at discharge is for her to return to [facility]. Patient's PCP is at [facility] but he did not remember her name, preferred pharmacy is [facility]. Gerard reports her medications are getting expensive, social service technician provided information regarding [facility] and recommended speaking with the pharmacist about any discounted options. Gerard confirmed he is [facility]. Gerard reports patient utilizes a wheelchair at her custodial and is able to get up and out of her wheelchair on her own but receives assistance with all ADLS. Gerard confirmed patient has Medicare A & B as well as Medicare [employer] as supplemental insurance. housekeeping department worker notified Sandy Flores RN case manager, whom will assist with verifying insurance. Discharge Plan: [facility]
--- NOTE | 2023-05-26 18:39 | NUR ---
PATIENT IS STILL CONFUSED TODAY. SAT IN RECLINER AND WORKED WITH PT AND OT. PATIENT IS WEAK AND UNSTEADY DUE TO PROGRESSING MS. PATIENT IS INCONTINENT OF BOWEL AND BLADDER. PUREWICK DOES NOT WORK WELL WITH THIS PATIENT. CURRENTLY USING A BRIEF. VSS. PATIENT IS LAYING IN BED RESTING WITH CALL LIGHT. X3 BEDRAILS UP
--- NOTE | 2023-05-26 19:42 | NUR ---
REPORT RECIEVED FROM ARNIE AVILA. PT RESTING IN BED WATCHING TV. PT NOTED TO BE CONFUSED BUT ALERT. PT DENIES PAIN. BED ALARM ON. CALL LIGHT IN PLACE. ALL NEEDS MET AT THIS TIME.
--- NOTE | 2023-05-26 22:45 | NUR ---
SHIFT ASSESSMENT COMPLETE, SEE DOCUMENTATION. PT DENIES PAIN. PT CONTINUES TO BE REPOSITIONED AND INCONTINENCE CARE Q2H PRN. BED ALARM ON. CALL LIGHT IN PLACE. ALL NEEDS MET AT THIS TIME.
[2023-05-27] VITALS (13 sets, daily range): BP systolic 111–132; BP diastolic 50–57; PULSE 7–87; TEMP 97.5–100.1
--- NOTE | 2023-05-27 03:36 | NUR ---
NOTIFIED THAT PT HAS LOW GRADE TEMP OF 100.1. PRN TYLENOL ADMINISTERED. REMOVED A COUPLE BLANKETS TO COOL PT DOWN. PT DENIES PAIN OR DISCOMFORT. PT IS NOT DIAPHORETIC. PT REMAINS ASYMPTOMATIC. BED ALARM ON. CALL LIGHT IN PLACE. ALL NEEDS MET AT THIS TIME.
--- NOTE | 2023-05-27 08:30 | NUR ---
Pt is resting in bed, alert to self, cooperative to take her medications, denies any pain or discomfort at this time. Assessment completed, meds provided. No further needs at this time. bed alarm on.
--- NOTE | 2023-05-27 14:33 | NUR ---
Area Mechanic sent clinical updates for Patient to [facility].
--- NOTE | 2023-05-27 22:30 | NUR ---
Shift assessment completed- see documentation. Pt is alert and disoriented. She complains of mild pain in her feet. She is incontinent and had a small BM. She was cleaned up and barrier cream was applied to her periarea due to redness. She was adjusted until comfortable. She denies other needs at this time. Fall precautions in place and call light within reach.
[2023-05-28] VITALS (7 sets, daily range): BP systolic 101–131; BP diastolic 54–60; PULSE 71–80; TEMP 98.2–98.9
--- NOTE | 2023-05-28 09:24 | NUR ---
Patient alert to self, location, and situation this morning. Follows commands. Shift assessment complete, no new variances noted. No emesis episodes this morning. Patient denies pain or discomfort at this time. Eye ointment applied to left eye per orders. Patient has low appetite, but encouraged to eat. Patient currently in bed with call light in reach and fall precautions in place.
[2023-05-28] MEDS ORDERED: MACROBID 1100 MG/CAP PO (11:33)
--- NOTE | 2023-05-28 12:31 | NUR ---
NURIS called at Dr. Nagy's request to see if facility will accept. [facility] will not be able to accept pt until Tuesday05/30/23. NURIS provided update to weekday staff.
--- NOTE | 2023-05-28 13:17 | NUR ---
Patient remains stable. Currently sitting in recliner and finishing lunch. Eye ointment applied to left eye per orders for second time, redness noted to sclera. No eye drainage noted. Patient voices discomfort with IV antibiotic, but tolerates it well. Discomfort noted with saline flush as well. IV site appears CDI, no infiltration or phlebitis signs noted. Patient's mood seems sad, states she is "ready to leave." Denies pain at this time. Call light within reach and chair alarm on.
--- NOTE | 2023-05-28 18:19 | NUR ---
Patient remains stable. Required incontinence care multiple times this shift. Currently in bed, sitting up and eating dinner. Patient noted to be irritable with cares. Denies pain at this time. DPOA updated on day. Call light within reach and fall precautions in place.
[2023-05-29] VITALS (8 sets, daily range): BP systolic 101–132; BP diastolic 50–69; PULSE 62–77; TEMP 97.9–98.6
--- NOTE | 2023-05-29 08:42 | NUR ---
Patient alert to self and situation this morning. Shift assessment complete, no new variances noted. Purewick in place and draining yellow/clear urine. Eye ointment applied to left eye, sclera appears white and clear drainage noted. Slight confusion noted, patient asked for TV to be turned on, but patient was currently watching a show already. Denies pain at this time. Patient currently in bed with call light in reach and fall precautions in place.
--- NOTE | 2023-05-29 10:08 | NUR ---
NURIS called RAFAT Gee at [phone] 10:00am to clarify questions left with nurse about potentially having pt transfer to a facility in [facility] vs [place]. NURIS left .
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
--- NOTE | 2023-05-29 15:40 | NUR ---
Patient noted to be irritable with cares. silver steward were transferring patient from recliner to bed when she began to cuss at them. Patient then began talking about holidays. Patient noted to be watching holiday infomercials on TV. Once in bed, patient was content and irritability decreased. Call light within reach and fall precautions in place.
--- NOTE | 2023-05-29 20:30 | NUR ---
Initial shift assessment done- knows name/place, some confusion with time, tele on, SR 65/min, Purewick on-draining clear yellow urinw. Some edema noted to lower extremities. Bed a alarm on- close to [facility]- call light in reach.
[2023-05-30 00:35] VITALS: BP_SYST 132
[2023-05-30 03:37] VITALS: BP 116/55; PULSE 62; TEMP 97.7
[2023-05-30 04:04] VITALS: BP_SYST 116
--- NOTE | 2023-05-30 06:06 | NUR ---
Did sleep good last night- VSS, repositioned throughout the night,, was incontinent x1 of soft stool- cleaned up/new Purewick placed. Tele on,SR.
[2023-05-30 08:06] VITALS: BP 113/79; PULSE 70; TEMP 97.9
--- NOTE | 2023-05-30 08:30 | NUR ---
Patient is having breakfast, alert and oriented to self, denies any pain or discomfort. Assessment completed, refuses lovenox shot. Purewick in place. No further needs at this time, chair alarm on.
[2023-05-30 08:40] VITALS: BP_SYST 113
[2023-05-30 09:26] LABS: BASO # 0.1 K/mm3 (0.0-0.2); BASO % 0.5 % (0.0-2.0); EOS # 0.2 K/mm3 (0.0-0.7); EOS % 1.3 % (0.0-4.0); GRAN # 9.1 K/mm3 (1.4-6.5); GRAN % 76.5 % (42.2-75.2); HEMATOCRIT 40.2 % (37.0-47.0); HEMOGLOBIN 13.5 g/dl (12.5-16.0); LYMPH # 1.6 K/mm3 (1.2-3.4); LYMPH % 13.1 % (20.0-51.0); MEAN CELL VOLUME 85 fl (80.0-100.0); MEAN CORPUSCULAR HEMOGLOBIN 29 pg (27-31); MEAN CORPUSCULAR HGB CONC 34 g/dl (33.0-37.0); MEAN PLATELET VOLUME 9.9 fl (7.4-10.4); MONO # 0.9 K/mm3 (0.1-0.6); MONO % 7.3 % (1.7-9.3); PLATELET COUNT 513 K/mm3 (130-400); RED BLOOD COUNT 4.72 M/mm3 (4.10-5.30); REDCELL DISTRIBUTION WIDTH-CV 14.4 % (11.5-14.5)
[2023-05-30 09:34] LABS: CALCIUM 9.6 mg/dL (8.4-10.2); CREATININE, serum 0.78 mg/dL (0.57-1.11); POTASSIUM 3.8 mmol/L (3.5-4.5)
--- NOTE | 2023-05-30 10:35 | NUR ---
Patient was picked up by [facility] real estate representative. IV and telemetry were discontinued. Hygiene was provided. Report given to AUSTIN Campbell.
--- NOTE | 2023-05-30 15:20 | NUR ---
rocket test fire worker spoke with [facility], Zeinab Hobbs, and answered questions regarding other facility care options. Patient transferred back to [facility].
--- NOTE | 2023-05-30 17:17 | NUR ---
cleaner touch up worker reviewed notes from weekend nursing home social worker expressing DPOA wanting information regarding transferring patient to another facility. cleaner touch up worker contacted primary DPOA, Gerard, whom expressed the plan was still to return her to [facility] and he is not sure why the alternative DPOA brought up a transfer from the hospital. cleaner touch up worker reviewed important message from Medicare regarding patient's rights via telephone with primary DPOA as patient is unable to make medical decisions. DPOA-HC understood and provided verbal consent for the form. cleaner touch up worker made a copy, placed original in chart and provided a copy to the nurse to place in patient's discharge orders. cleaner touch up worker contacted [facility] and notified them patient is medically stable for discharge. [facility] was able to transport patient now. cleaner touch up worker notified nursing staff and patient's DPOA-HC. cleaner touch up worker provided the reporting number to the nurse staff. No further concerns at this time. Discharge Plan: [facility]
== END 2023-05-30 10:36 | DRG 871 ==
LOC: COL.ER 18:01 → MEDICAL 22:31
PROVIDERS: Emergency Medicine; Physician Assistant; ADMIT Internal Medicine
DX: A41.9 Sepsis, unspecified organism (principal); G93.41 Metabolic encephalopathy; N30.00 Acute cystitis without hematuria; B96.20 Unspecified Escherichia coli [E. coli] as the cause of diseases classified elsewhere; E87.6 Hypokalemia; I10 Essential (primary) hypertension; F03.90 Unspecified dementia, unspecified severity, without behavioral disturbance, psychotic disturbance, mood disturbance, and anxiety; F22 Delusional disorders; F32.9 Major depressive disorder, single episode, unspecified
CPT/HCPCS: J0696; J1650; J2185; J7120; Q3014